=== PATIENT | female | born 1940 | race Caucasian/White ===

== ENCOUNTER 2020-06-24 11:33 | Outpatient (CLI) | payer MEDICARE, SELFPAY ==
--- NOTE | ~2020-06-24 | US_ITS ---
EXAMINATION: US venous doppler [facility] EXAM DATE: 06/24/2020 12:19 INDICATION: Left leg swelling, knee replacement in May. TECHNIQUE: Multiple grayscale, color flow and Doppler images of the left lower extremity deep venous system were obtained and reviewed. There is no prior study for comparison. FINDINGS: The left common femoral, femoral and profunda veins demonstrate normal color flow, respirat ory variation, augmentation and compressibility. Compressibility, color flow confirmed within the le ft popliteal, posterior tibial, peroneal, and greater saphenous veins. IMPRESSION: 1. No left lower extremity deep venous thrombosis. Reviewed, dictated and finalized at location B.
== END 2020-06-24 11:34 | disposition home or self-care (01) ==
LOC: ANHIMG 11:46
PROVIDERS: PCP Family Medicine; Visit Provider Orthopaedic Surgery
DX: M79.605 Pain in left leg (principal)
CPT/HCPCS: 93971

== ENCOUNTER 2021-09-22 07:46 | Outpatient (CLI) | payer MEDICARE, SELFPAY ==
--- NOTE | ~2021-09-22 | DEXA_ITS ---
Bone Density Report Name: Jadyn Grey Age: 80 Sex: Female Ethnicity: White Date of : 1940 Indication: postmenopausal; height loss; prior fracture; asthma or emphysema; Referring Provider: JEAN PIERRE SAM Study: Bone densitometry was performed. Exam Date: September 22, 2021 Accession number: [id number] Bone Density: Region BMD T-score Z-score Classification AP Spine (L1-L4) 1.132 0.8 3.4 Normal Femoral Neck (Left) 0.698 -1.4 0.9 Osteopenia Total Hip (Left) 0.791 -1.2 0.8 Osteopenia Total Hip Bilateral Avg 0.798 -1.2 0.8 Osteopenia Femoral Neck (Right) 0.747 -0.9 1.3 Normal Total Hip (Right) 0.804 -1.1 0.9 Osteopenia World Health Organization criteria for BMD impression classify patients as: Normal (T-score at or above -1.0), Osteopenia (T-score between -1.0 and -2.5), or Osteoporosis (T-score at or below -2.5). 10-year Fracture Risk(1): Major Osteoporotic Fracture 18% Hip Fracture 3.6% Reported Risk Factors: [place] (), Neck BMD=0.698, BMI=25.4, previous fracture (1) FRAX(R) Version 3.08. Fracture probability calculated for an untreated patient. Fracture probability may be lower if the patient has received treatment. Clinical Information Provided by Patient: Has had a low trauma fracture Has used the following medications: Vitamin D, Calcium Has the following medical conditions: Asthma or Emphysema Patient maximum height was 64 Menopause Age: 55 Onset of menses at age 16 Number of children 0 Impression: The patient has low bone mass, based on the Left Femoral Neck T-score. The patient has an estimated ten-year risk of hip fracture of 3.6% and an estimated ten-year risk of major fracture of 18%, based on the WHO FRAX algorithm. The patient has risk factors, including: previous fracture. Discussion: BONE DENSITY IS LOW AT ONE OR MORE SKELETAL SITES. THE PATIENT'S BMD AND CLINICAL RISK FACTORS CONTRIBUTE TO THIS PATIENT'S INCREASED RISK OF FRACTURE. This patient's lowest T-score is low at one or more skeletal sites. It meets the World Health Organization's (WHO) criteria for ?low bone mass? (T-score between -1.0 and -2.5). The patient's 10-year risk of hip fracture as calculated by FRAX exceeds the threshold where pharmacological therapy is recommended by the National Osteoporosis Foundation (NOF). However, all treatment decisions require clinical judgment and consideration of individual patient factors, including patient preferences, comorbidities, previous drug use, risk factors not captured in the FRAX model (e.g., frailty, falls, vitamin D deficiency, increased bone turnover, interval significant decline in bone density) and possible under or overestimation of fracture risk by FRAX. The patient should follow a healthful lifestyle (good nutrition with adequate calcium and vitamin D,
== END 2021-09-22 07:47 | disposition home or self-care (01) ==
LOC: ANHIMG 07:49
PROVIDERS: PCP Family Medicine; Visit Provider Family Medicine
DX: Z78.0 Asymptomatic menopausal state (principal); M85.852 Other specified disorders of bone density and structure, left thigh; M85.851 Other specified disorders of bone density and structure, right thigh
CPT/HCPCS: 77080

== ENCOUNTER 2022-12-08 11:06 | Observation (INO) | payer MEDICARE, SELFPAY ==
[2022-12-08] VITALS (24 sets, daily range): BP systolic 125–157; BP diastolic 49–109; PULSE 62–72; RESP 10–22; TEMP 36.6–36.8; O2SAT 97–100; BMI 24.0
--- NOTE | ~2022-12-08 | XR_ITS ---
EXAMINATION: XR chest 1V INDICATION: Sudden onset dizziness TECHNIQUE: AP view of the chest is obtained. COMPARISON: 02/07/2017 FINDINGS: There are chronic opacities of the lung bases. No pleural effusion or pneumothorax is ident ified. The heart size is normal. Median sternotomy wires are consistent with prior cardiac surgery. A dual-lead cardiac pacemaker of the left chest wall ends with leads in expected locations. IMPRESSION: 1. No acute cardiopulmonary abnormality. Reviewed, dictated and finalized at location L. TH PROGRAM ANALYST
--- NOTE | ~2022-12-08 | CT_ITS ---
EXAMINATION: CTA brain carotid DATE: 12/08/2022 12:29 INDICATION: Cerebrovascular accident. Dizziness. Right eye visual loss. TECHNIQUE: Computed tomographic angiography (CTA) of the head was performed without and with 100 mL O mnipaque-350 intravenous contrast. CTA of the neck was performed with intravenous contrast. Automated exposure control and iterative reconstruction technique were employed. The dose-length product was 1 616.36 mGy-cm. Maximum intensity projection and volume rendered 3D-reconstructions were created by moe alas technologist on a separate workstation. COMPARISON: Chest CT 01/31/2010 FINDINGS: HEAD CTA: There are scattered areas of low attenuation in the cerebral white matter, which is within normal limits for the patient's age. There is no intracranial hemorrhage, acute infarction, or abnorm al intracranial mass lesion. The ventricles are normal in size. There is mucosal thickening in the pa ranasal sinuses. There are changes of ethmoidectomies. There is thickening of the sage of the maxill reji sinuses. There are small bilateral mastoid effusions. Right vertebral artery is dominant. There i s no significant stenosis of basilar artery or the posterior cerebral arteries. The posterior communi cating arteries are normal. There is no significant stenosis of the intracranial internal carotid art eries or anterior or middle cerebral arteries. Anterior communicating artery is normal. There is no a neurysm. NECK CTA: There is mild scarring at the lung apices. There is a 2.0 cm nodule in left upper lobe. Par tially visualized is a left chest pacer. There is a 1.2 cm nodule in right thyroid lobe, likely not c linically significant. There are no pathologically enlarged lymph nodes. There is no significant sten osis of the vertebral arteries. There is plaque in the proximal internal carotid arteries. There is 0 % stenosis of the proximal right internal carotid artery relative to normal distal artery lumen diame ter (NASCET criteria). There is 0% stenosis of the proximal left internal carotid artery relative to normal distal artery lumen diameter. There is severe cervical and thoracic spondylosis. IMPRESSION: 1. Normal aging brain. 2. No aneurysm or significant intracranial calcinosis. 3. 0% stenosis of the proximal internal carotid arteries relative to normal distal artery lumen diame ters (NASCET criteria). 4. 2.0 cm nodule in left lung upper lobe, which may be infection/inflammation or less likely neoplasm . Noncontrast low-dose chest CT is recommended in 1-2 months. Reviewed, dictated and finalized at location A. UCTION PATTERN MAKER IMPRESSION: 1. Normal aging brain. 2. No aneurysm or significant intracranial calcinosis. 3. 0% stenosis of the proximal internal carotid arteries relative to normal dis bertha artery lumen diameters (NASCET criteria). 4. 2.0 cm nodule in left lung upper lobe, which may be infection/inflammation o r less likely neoplasm. Noncontrast low-dose chest CT is recommended in 1-2 mon ths.
--- NOTE | ~2022-12-08 | US_ITS ---
EXAMINATION: US carotid duplex BI DATE: 12/09/2022 10:38 INDICATION: Transient ischemic episode with subjective visual disturbance TECHNIQUE: Grayscale, color Doppler, and pulsed Doppler images of the cervical carotid arteries were obtained. The degree of vessel stenosis is placed in one of the following categories: normal, <50%, 5 0-69%, >=70% but less than near-occlusion, near-occlusion, or total occlusion. Note that percent sten osis relative to normal distal artery lumen diameter is indirectly measured from velocity measurement s as described by Ron, et al. Radiology 2003; 229:340-346. COMPARISON: None. FINDINGS: RIGHT: The right common carotid artery (CCA) peak systolic velocity (PSV) is 90 cm/s. The right internal car otid artery (ICA) PSV is 70 cm/s. The right ICA end-diastolic velocity (EDV) is 21 cm/s. The right IC A/CCA PSV ratio is 0.8. Grayscale and color Doppler images yield an estimate of <50% diameter reducti on from plaque in the ICA. The external carotid artery (ECA) PSV is 86 cm/s. There is antegrade flow in the right vertebral artery. LEFT: The left CCA PSV is 96 cm/s. The left ICA PSV is 83 cm/s. The left ICA EDV is 24 cm/s. The left ICA/C CA PSV ratio is 0.9. Grayscale and color Doppler images yield an estimate of <50% diameter reduction from plaque in the ICA. The ECA PSV is 70 cm/s. There is antegrade flow in the left vertebral artery. IMPRESSION: 1. <50% stenosis in the right internal carotid artery. 2. <50% stenosis in the left internal carotid artery. Reviewed, dictated and finalized at location A. ES' LOCKER ROOM ATTENDANT
--- NOTE | 2022-12-08 11:11 | ECG_ITS ---
Measurements Intervals [place] Rate: 61 P: 49 NM: 173 QRS: -38 QRSD: 125 T: 6 QT: 371 QTc: 375 Interpretive Statements ATRIAL SENSE- ELECTRONIC VENTRICULAR PACEMAKER BASELINE ARTIFACT- I, V5-V6 NO FURTHER INTERPRETATION IS POSSIBLE ATYPICAL ECG NO PREVIOUS ECG AVAILABLE FOR COMPARISON Electronically Signed On 12-08-2022 12:23:22 ORDER ANALYST by Terry Monroy D.O.
[2022-12-08 11:40] LABS: Glucose Point of Care 104 mg/dl (65-105)
[2022-12-08 11:49] LABS: Basophils Percent Auto 0.1 % (0.2-1.2); Hematocrit 40.5 % (37.0-47.0); Hemoglobin 12.8 g/dL (12.0-15.0); Immature Granulocyte Absolute 0.03 K/mm3 (0.00-0.031); Immature Granulocyte Percent A 0.4 % (0-0.5); Lymphocytes Absolute Auto 1.66 K/mm3 (0.9-3.2); Lymphocytes Percent Auto 19.5 % (18.3-44.2); Mean Corpuscular HGB Conc 31.6 g/dl (32-36); Mean Corpuscular Hemoglobin 27.4 pg (26-34); Mean Corpuscular Volume 86.5 fl (80-100); Mean Platelet Volume 10.1 fl (7.4-10.4); Monocytes Absolute Auto 0.6 K/mm3 (0.1-0.6); Monocytes Percent Auto 7.4 % (2.6-8.5); Neutrophils Absolute Auto 6.2 K/mm3 (1.3-6.7); Neutrophils Percent Auto 72.6 % (45.5-73.1); Platelet Count Result 283 k/mm3 (150-375); Red Blood Count 4.68 M/mm3 (4.2-5.4); Red Cell Distribution Width 12.7 % (11.5-14.5); White Blood Count 8.5 K/mm3 (4.5-10.0)
[2022-12-08 12:00] LABS: Partial Thromboplastin Time 27.6 SECONDS (22.3-36.8); Prothrombin Time 13.1 Seconds (11.1-14.7)
[2022-12-08 12:01] LABS: Alanine Aminotransferase 16 U/L (6-35); Alkaline Phosphatase 72 U/L (38-126); Anion Gap 6 mmol/L (8-16); Aspartate Amino Transferase 23 U/L (14-36); Bilirubin,Total 0.6 mg/dL (0.2-1.3); Blood Urea Nitrogen 18 mg/dL (7-17); Calcium 8.9 mg/dL (8.4-10.2); Carbon Dioxide 29 mmol/L (22-30); Chloride 103 mmol/L (98-107); Estimated CRCL calculation 33 ml/min; Estimated Glomerular Filt Rate 53; Glucose 107 mg/dL (65-110); Potassium 4.2 mmol/L (3.4-5.0); Sodium 138 mmol/L (137-145)
[2022-12-08 12:12] LABS: Troponin I < 0.012 ng/mL (0.000-0.034)
--- NOTE | 2022-12-08 12:27 | ED.GENADULT ---
HPI - General Adult General Chief complaint: Eye Problems Stated complaint: vision loss right eye Time Seen by Provider: 12/08/22 11:13 History of Present Illness HPI narrative: Patient is an 82-year-old female who presents ER with concerns for strokelike symptoms. At 9 AM she was washing dishes when she began to get dizzy and lost vision in her right eye. When she covered her left eye she had 0 vision in her right eye. Symptoms lasted for approximately 10 seconds. She called her PCP who told her she should come to the ER. No numbness or weakness in arm or leg. No known slurred speech or facial droop. She has no headache. No symptoms at this time. Related Data Home Medications Medication Instructions Recorded Confirmed albuterol sulfate 0.63 mg/3 mL 0.55 mg inhalation QID 12/26/19 12/08/22 solution for nebulization albuterol sulfate 90 mcg/actuation 2 puff inhalation Q4-6H PRN 12/26/19 12/08/22 aerosol inhaler (ProAir HFA) Bronchodilation aspirin 81 mg tablet,delayed 81 mg PO DAILY 12/26/19 12/08/22 release (Aspir-) calcium carbonate 500 mg calcium 500 mg PO DAILY 12/26/19 12/08/22 (1,250 mg) tablet cholecalciferol (vitamin D3) 25 1,000 unit PO DAILY 12/26/19 12/08/22 mcg (1,000 unit) tablet (Vitamin D3) fluticasone furoate 200 1 inhalation inhalation DAILY 12/26/19 12/08/22 mcg-vilanterol 25 mcg/dose inhalation powder (Breo Ellipta) benralizumab 30 mg/mL subcutaneous 30 mg subcut ONCE 04/14/21 12/08/22 syringe (Fasenra) biotin 10,000 mcg capsule 10,000 mcg PO DAILY 12/08/22 12/08/22 Allergies Allergy/AdvReac Type Severity Reaction Status Date / Time No Known Allergies Allergy Verified 10/15/21 09:32 Review of Systems Review of Systems: All systems reviewed & are unremarkable except as noted in HPI and below Constitutional: Constitutional: Denies chills, Denies fatigue and Denies fever(s) Eyes: Eyes: Reports change in vision and Denies photophobia ENT: Denies nasal congestion and Denies sore throat Cardiovascular: Cardiovascular: Denies chest pain, Denies rapid heart rate and Denies radiating jaw, neck or arm pain Respiratory: Respiratory: Denies cough, Denies dyspnea and Denies wheezing Gastrointestinal: Gastrointestinal: Denies abdominal pain, Denies nausea and Denies vomiting PMFSH Past Medical History Medical History Asthma Hyperlipidemia Midline sternotomy scar Pacemaker Surgical History Surgical History History of meniscectomy of left knee History of permanent cardiac pacemaker placement History of total left knee replacement Family History Family History Father Family history of lung cancer, Onset Age: 57 Mother Patient's mother is Other Family history of malignant neoplasm of ovary Social History Social History Second hand tobacco smoke exposure: No Alcohol intake: current Alcohol use details: socially; seldom Substance use: never Substance use type: does not use Spiritual care concerns: No Agree to blood products: Yes Exam Narrative: GENERAL: Well-appearing, well-nourished, and in no acute distress. HEAD: Normocephalic, atraumatic. EYES: PERRL and EOMI. ENT: Mucous membranes moist. CHEST: Mild scattered wheezes. No respiratory distress. HEART: Regular rate and rhythm. Normal peripheral pulses. ABDOMEN: Soft, nontender, nondistended. EXTREMITIES: Normal range of motion. No edema. SKIN: Warm, dry, no rash. NEURO: Alert and oriented x3. NIH stroke scale 0. No focal deficits. PSYCH: Normal mood and affect. Course Course Emergency Course: I reviewed patient's imaging/EKG/lab work. Patient without critical stenosis requiring intervention in her vasculature. Will admit to the hospital ser
--- NOTE | 2022-12-08 17:35 | ADMGEN ---
This patient, Jadyn Grey, was admitted to Medical Room 345-. Patient/family oriented to hospital policies and general routines including ID bracelet, bed and alarms, visiting hours, pain management, procedures, bathroom and other care routines, personal items, smoking policy, room service/diet, and visiting hours. Information on how to activate the Rapid Response Team has been discussed. Patient/Family are encouraged to report perceived risks to care and to ask questions if they do not understand what they are told or what they should do.
--- NOTE | 2022-12-08 21:10 | PM.IMHP ---
H&P: HPI History of Present Illness Date/Time: 12/08/22 21:10 Chief Complaint: Visual problem Narrative: This is a fairly healthy 82-year-old female patient who came in with complaints of stroke-like symptoms. The patient stated around 90 a.m. she was washing her dishes and she began to get dizzy. However the patient stated she has had dizziness in the past and has already seen her doctor about the dizziness. The patient stated that she felt dizzy today and lost vision in right eye. She stated it last anywhere from 30 seconds to 60 seconds. She stated that the vision in the right eye went only black. And then returned on its own. She called her primary care doctor who instructed her to come to the emergency room. She had no numbness or tingling or focal weakness. She had no facial droop or slurred speech. The patient is already on an aspirin. The patient is walking and talking without difficulty. Head and neck CTA was read as the following. Normal aging brain. 2. No aneurysm or significant intracranial calcinosis. 3. 0% stenosis of the proximal internal carotid arteries relative to normal distal artery lumen diameters (NASCET criteria). 4. 2.0 cm nodule in left lung upper lobe, which may be infection/inflammation or less likely neoplasm. Noncontrast low-dose chest CT is recommended in 1-2 months. Chest x-ray read as no acute cardiopulmonary abnormal The patient stated that she was diagnosed with COVID approximately 8 days ago. She stated that her primary care doctor told her that she only needed to be on isolation for 5 days. The patient is being admitted for observation status on the date of service of 12/08/2022 Review of Systems Review of Systems: See HPI All systems reviewed & are unremarkable except as noted in HPI and below Constitutional: Constitutional: Reports as per HPI and Reports no additional constitutional complaints Eyes: Eyes: Reports as per HPI and Reports no additional eye complaints ENT: Reports system reviewed and no additional complaints, except as documented and Reports Normal hearing present Cardiovascular: Cardiovascular: Reports no additional cardiovascular complaints Respiratory: Respiratory: Reports no additional respiratory complaints and Reports no additional respiratory complaints Gastrointestinal: Gastrointestinal: Reports as per HPI and Reports no additional gastrointestinal complaints Musculoskeletal: Musculoskeletal: Reports no additional musculoskeletal complaints Integumentary/Breasts: Skin/Breast: Reports system reviewed and no additional complaints, except as docu and Reports as per HPI Neurologic: Reports system reviewed and no additional complaints, except as documented, Reports as per HPI and Reports Normal hearing present Psychiatric: Psychiatric: Reports no additional psychiatric complaints and Reports as per HPI Endocrine: Endocrine: Reports no additional endocrine complaints Hematologic/Lymphatic: Hematologic/Lymphatic: Reports no additional hematologic/lymphatic complaints Allergic/Immunologic: Allergic/Immunologic: Reports no additional allergic/immunologic complaints [facility] Past Medical History Medical History Asthma Hyperlipidemia Midline sternotomy scar Pacemaker Surgical History Surgical History (Updated 12/08/22 @ 23:20 by Samina Waldron NP) H/O cataract extraction H/O heart valve replacement with bioprosthetic valve History of bunionectomy History of meniscectomy of left knee History of permanent cardiac pacemaker placement History of total left knee replacement Family History Family History Father Family history of lung cancer, Onset Age: 57 Mother Patient's mother is Other Family history of malignant neoplasm of ovary Social History Social History (Updated 12/08/22 @ 23:21 by Samina Waldron NP) Social History:
[2022-12-09] VITALS (7 sets, daily range): BP systolic 120–128; BP diastolic 47–56; PULSE 61–77; RESP 16–18; TEMP 36.7–37; O2SAT 98–99
[2022-12-09 05:34] LABS: Basophils Percent Auto 0.2 % (0.2-1.2); Hematocrit 36.6 % (37.0-47.0); Hemoglobin 11.8 g/dL (12.0-15.0); Immature Granulocyte Absolute 0.02 K/mm3 (0.00-0.031); Immature Granulocyte Percent A 0.3 % (0-0.5); Lymphocytes Absolute Auto 2.05 K/mm3 (0.9-3.2); Mean Corpuscular HGB Conc 32.2 g/dl (32-36); Mean Corpuscular Hemoglobin 27.5 pg (26-34); Mean Corpuscular Volume 85.3 fl (80-100); Mean Platelet Volume 9.8 fl (7.4-10.4); Monocytes Absolute Auto 0.8 K/mm3 (0.1-0.6); Monocytes Percent Auto 11.3 % (2.6-8.5); Neutrophils Absolute Auto 3.8 K/mm3 (1.3-6.7); Neutrophils Percent Auto 57.2 % (45.5-73.1); Platelet Count Result 280 k/mm3 (150-375); Red Blood Count 4.29 M/mm3 (4.2-5.4); Red Cell Distribution Width 12.8 % (11.5-14.5); White Blood Count 6.6 K/mm3 (4.5-10.0)
[2022-12-09 05:40] LABS: Alanine Aminotransferase 14 U/L (6-35); Albumin Level 3.6 g/dL (3.5-5.1); Alkaline Phosphatase 57 U/L (38-126); Anion Gap 1 mmol/L (8-16); Aspartate Amino Transferase 23 U/L (14-36); Bilirubin,Total 0.6 mg/dL (0.2-1.3); Blood Urea Nitrogen 17 mg/dL (7-17); Calcium 8.8 mg/dL (8.4-10.2); Carbon Dioxide 31 mmol/L (22-30); Chloride 104 mmol/L (98-107); Estimated CRCL calculation 30 ml/min; Estimated Glomerular Filt Rate 48; Glucose 92 mg/dL (65-110); Potassium 4.1 mmol/L (3.4-5.0); Sodium 136 mmol/L (137-145)
--- NOTE | 2022-12-09 06:00 | ECHO_ITS ---
Patient Info Name: Jadyn Grey Age: 82 years : 1940 Gender: Female Ht: 63 in Wt: 135 lbs BSA: 1.66 m2 HR: 71 bpm BP: 128 / 57 mmHg Heart Rhythm: Sinus Rhythm Technical Quality: Fair Exam Date: 12/09/2022 10:04 AM Exam Location: [facility] Patient Status: Inpatient Admit Date: 12/08/2022 Staff Ordering Physician: Andrew Feng MD Commodities Clerk: Lynsey Zuniga RDCS Attending Provider: Rayo Myers MD Referring Physician: Jung ZAMUDIO; Exam Type: CA echo doppler color flow Study Info Indications - TIA Complete two-dimensional, color flow and Doppler transthoracic echocardiogram is performed. Summary 1. Complete two-dimensional, color flow and Doppler transthoracic echocardiogram is performed. 2. Left ventricular chamber dimension is normal. 3. Left ventricular systolic function is normal, estimated at >70%. 4. The left ventricular diastolic function is grade I diastolic dysfunction. 5. Right ventricular systolic function is normal. 6. Linear artifact in right ventricle suggestive of catheter(s), pacemaker lead(s), or ICD lead(s). 7. Linear artifact in the right atrium suggestive of catheter(s), pacemaker lead(s), or ICD lead(s). 8. The mitral valve has thickened leaflets and calcified leaflets. 9. The mitral valve annulus is severely calcified. 10. There is trace mitral valve regurgitation. 11. There is mild to moderate tricuspid valve regurgitation. Left Ventricle Left ventricular chamber dimension is normal. Left ventricular systolic function is normal, estimated at >70%. There is no increased left ventricular wall thickness. The left ventricular diastolic function is grade I diastolic dysfunction. Right Ventricle Linear artifact in right ventricle suggestive of catheter(s), pacemaker lead(s), or ICD lead(s). Right ventricular chamber dimension is normal. Right ventricular systolic function is normal. Left Atria Left atrial chamber dimension is normal. Right Atria Linear artifact in the right atrium suggestive of catheter(s), pacemaker lead(s), or ICD lead(s). Right atrial chamber dimension is normal. Atrial Septum Intact interatrial septum visualized by color flow imaging. Aortic Valve The aortic valve is not well visualized. There is no aortic valve regurgitation. Pulmonic Valve The pulmonic valve is not well visualized. Mitral Valve The mitral valve has thickened leaflets and calcified leaflets. There is trace mitral valve regurgitation. The mitral valve annulus is severely calcified. Tricuspid Valve There is mild to moderate tricuspid valve regurgitation. Pericardium/Pleural There is no pericardial effusion. Inferior Vena Cava Normal inferior vena cava with >50% collapse upon inspiration consistent with normal right atrial pressure, 3 mmHg. Aorta The aortic root size at the sinus of Valsalva is normal. Left Ventricular Outflow Tract Name Value Normal LVOT 2D LVOT Diameter 1.9 cm LVOT Doppler LVOT Peak Gradient 7 mmHg LVOT Mean Gradient 3 mmHg LVOT VTI
[2022-12-09] MEDS: FLUTICASONE/SALMETEROL 230-21 MCG INHALER 1 PUFF 2 PUFF INHALATION (08:04)
[2022-12-09] MEDS: OMEGA 3 POLYUNSAT FATTY ACIDS 1 GM CAP PO (09:43)
[2022-12-09] MEDS: ASPIRIN 81 MG ENTERIC TABLET PO (09:43)
[2022-12-09] MEDS: CHOLECALCIFEROL 1,000 UNITS TABLET 1000 UNITS PO (09:43)
[2022-12-09] MEDS: CALCIUM CARBONATE (OSCAL) 500 MG TABLET PO (09:43)
--- NOTE | 2022-12-09 10:46 | PC.NURSE ---
[facility], meds can be seen on JAN, just not scanned in. all meds and doseage verified with pt. pt gave all correct identifiers. morning meds were given at 0943. hospitalist notified of this.
--- NOTE | 2022-12-09 12:05 | WPDNEURCNPN ---
Assessment and Plan Assessment and plan (1) Brain TIA: Code(s): G45.9 - Transient cerebral ischemic attack, unspecified Status: Acute (2) Hyperlipidemia: Code(s): E78.5 - Hyperlipidemia, unspecified Status: Acute (3) Pacemaker: Code(s): Z95.0 - Presence of cardiac pacemaker Status: Acute Plan Jadyn Grey is a 82 year old female with a history of asthma, hyperlipidimia, cardiac pacemaker who presented yesterday due to concerns for possible TIA. She had a short episode of dizziness and R vision loss. Likely amaurosis fugax although no significant atherosclerosis noted on CT angio of carotids. - MRI brain cannot be done during admission due to pacemaker - Recommend Aspirin and Plavix x 3 weeks, then Aspirin monotherapy - Continue Simvastatin - Surface echocardiogram is pending -- if unrevealing okay to discharge Consult date: 12/09/22 Time Seen: 12:05 Reason for consult: TIA/Stroke HPI: Jadyn Grey is a 82 year old female with a history of asthma, hyperlipidimia, cardiac pacemaker who presented yesterday due to concerns for possible TIA. Patient was washing her dishes yesterday morning when she developed sudden onset dizziness and complete loss of vision in her right eye. She reports this lasted less than a minute and self-resolved. She has no focal numbness or weakness, confusion or speech changes associated with the episode. She presented to [place] emergency department at the recommendation of her PCP. On arrival to the ED her neuro exam was unremarkable. Her CT head was negative for any acute changes. CTA brain and carotid showed 0% stenosis. Her blood pressure has been mostly in the 130s systolic. She has never had prior episodes in the past like this. She takes daily aspirin and simvastatin and follows with her [facility] at [facility]. Patient feels completely normal currently and denies any complaints. MRI brain could not be done due to patient's pacemaker. Carotid doppler was normal. Surface echocardiogram was done which is pending. Review of Systems Constitutional: Constitutional: Reports no additional constitutional complaints Eyes: Eyes: Reports as per HPI ENT: Reports system reviewed and no additional complaints, except as documented Cardiovascular: Cardiovascular: Reports no additional cardiovascular complaints Respiratory: Respiratory: Reports no additional respiratory complaints Gastrointestinal: Gastrointestinal: Reports no additional gastrointestinal complaints Genitourinary: Genitourinary: Reports no additional female genitourinary complaints Musculoskeletal: Musculoskeletal: Reports no additional musculoskeletal complaints Integumentary/Breasts: Skin/Breast: Reports system reviewed and no additional complaints, except as docu Neurologic: Reports as per HPI Psychiatric: Psychiatric: Reports no additional psychiatric complaints [facility] Past Medical History Medical History Asthma Hyperlipidemia Midline sternotomy scar Pacemaker Surgical History Surgical History H/O cataract extraction H/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 The patient is retired from [employer]. She is a lifelong nonsmoker. Code status full code Smoking status: Never smoker Second hand tobacco smoke e
--- NOTE | 2022-12-09 14:48 | PM.DS ---
DS: Admitting Diagnosis Discharge Date 12/09/22 Admitting Diagnosis TIA DS: Discharge Diagnosis Discharge Diagnosis (1) Brain TIA: Code(s): G45.9 - Transient cerebral ischemic attack, unspecified Status: Acute Assessment and Plan: -the patient has no neurological deficits. -neurology has been consulted. Unable to do an MRI she has a pacemaker -Neurology consultation was greatly be appreciated. -the patient is already on an aspirin. -patient's vision has returned to normal. I suspect that the patient has had a TIA and not a CVA. As her symptoms have already resolved. Her symptoms only lasted 30-60 seconds. -an echo has been ordered -carotid Dopplers have been ordered as well. -a CTA had been performed. (2) Hyperlipidemia: Code(s): E78.5 - Hyperlipidemia, unspecified Status: Acute Assessment and Plan: -continue with simvastatin (3) Asthma: Code(s): J45.909 - Unspecified asthma, uncomplicated Status: Acute Assessment and Plan: -continue with albuterol inhaler Plan Patient has a lung nodule that was seen on the CT scan. Patient will need to follow-up with her primary care doctor for repeat CT 1-2 months. DS: Summary Hospital Course Reason for hospitalization: TIA Hospital Course: 82-year-old female presented to the ED on 12/08/2022 with stroke-like symptoms including dizziness and loss of vision and her right eye for approximately 30 seconds. The symptoms did resolve although it did worried her and she presented to the ED. Patient was presumed to have a TIA versus CVA. CTA negative for acute intracranial processes, aneurysm, and 0% stenosis of internal carotid arteries. CTA did reveal 2 cm lung nodule and follow-up CT in 1-2 months as an outpatient is recommended. Carotid Dopplers and MRI ordered, neurology consulted. MRI unable to be conducted due to pacemaker. Carotid Dopplers negative. Neurology recommended initiation of Plavix for total of 3 weeks. Patient no longer having symptoms and presumed to have TIA. Patient already on high-dose statin and aspirin which recommended she continue. Echocardiogram revealed valvular disease which was already known to the patient. Patient follows cafeteria worker and is recommended that she continues following as an outpatient. Talked with neurologist over the phone and she advised follow-up with Neurology in 1-2 weeks. For more detailed information about patient's stay see above. Time Spent with Patient Time attestation: Total time spent providing and/or coordinating discharge services: Time spent: Greater than 30 minutes Exam Narrative: GENERAL: Comfortable, no acute distress HENMT: moist mucous membranes EYES: EOM intact b/l NECK: no lymphadenopathy RESPIRATORY: clear to auscultation CARDIO: RRR GI: soft, nontender, bowel sounds present SKIN: no rashes EXTREMITIES: no edema, redness or tenderness DS: Data Data Completed and Pending Labs on day of discharge: Labs from last 24 hours 12/09/22 12/09/22 12/09/22 05:25 05:25 05:25 WBC 6.6 RBC 4.29 Hgb 11.8 L Hct 36.6 L MCV 85.3 MCH 27.5 MCHC 32.2 RDW 12.8 Plt Count 280 MPV 9.8 Immature Gran % (Auto) 0.3 Neut % (Auto) 57.2 Lymph % (Auto) 31.0 [place] % (Auto) 11.3 H Eos % (Auto) 0.0 Baso % (Auto) 0.2 Lymph # (Auto) 2.05 [place] # (Auto) 0.8 H Eos # (Auto) 0.0 Baso # (Auto) 0.0 Abs Immat Gran (auto) 0.02 Absolute Neuts (auto) 3.8 Absolute Nucleated RBC 0.0 Nucleated RBC % 0.0 Sodium 136 L Potassium 4.1 Chloride 104 Carbon Dioxide 31 H Anion Gap 1 L BUN 17 Creatinine 1.10 H Estim Creat Clear Calc 30 Estimated GFR 48 L Glucose 92 Calcium 8.8 Magnesium 2.0 Total Bilirubin 0.6 AST 23 ALT 14 Alkaline Phosphatase 57 Total Protein 6.0 L Albumin 3.6 TSH (Reflex) 1.830 Discharge Plan Discharge Attending phys
== END 2022-12-09 16:00 | disposition home or self-care (01) ==
LOC: ANHED 11:46 → ANH3MED 17:40
PROVIDERS: Nurse Practitioner; Admitting Provider Chiropractor; Emergency Provider Emergency Medicine; PCP Hospitalist; Visit Provider Internal Medicine
DX: G45.9 Transient cerebral ischemic attack, unspecified (principal); E78.5 Hyperlipidemia, unspecified; Z95.0 Presence of cardiac pacemaker; R42 Dizziness and giddiness; H54.61 Unqualified visual loss, right eye, normal vision left eye; J45.909 Unspecified asthma, uncomplicated; R91.1 Solitary pulmonary nodule; Z86.16 Personal history of COVID-19; I08.1 Rheumatic disorders of both mitral and tricuspid valves; F10.90 Alcohol use, unspecified, uncomplicated; Z79.51 Long term (current) use of inhaled steroids; Z79.82 Long term (current) use of aspirin; Z79.899 Other long term (current) drug therapy
CPT/HCPCS: 36415; 70496; 70498; 71045; 80053; 82948; 83735; 84443; 84484; 85025; 85610; 85730; 93005; 93306; 93880; 94640; 99285; A9270; G0378; Q9967

== ENCOUNTER 2023-12-01 09:54 | Emergency (ER) | payer MEDICARE, SELFPAY ==
[2023-12-01 10:08] VITALS: BP 115/48; PULSE 65; RESP 16; TEMP 36.4; O2SAT 98
[2023-12-01] MEDS: TETANUS/DIPHTHERIA TOXOIDS ADSORB 0.5 ML VIAL (*BKC) IM (10:54)
--- NOTE | 2023-12-01 11:04 | ED.WOUNDLAC ---
HPI - Wound/Laceration General Chief Complaint: Wound/Laceration Stated Complaint: L FINGER LACERATION Time Seen by Provider: 12/01/23 10:56 Source: patient, family () and RN notes reviewed Mode of arrival: ambulatory Limitations: no limitations History of Present Illness HPI narrative: Patient presents today complaining of a laceration to the tip of her left 2nd finger. It was sustained yesterday evening around 5:00 p.m.. She was opening a bag of vegetables with a knife when she cut herself. She came in for treatment today because they cannot get it to stop bleeding. She is on 81 mg aspirin daily, but no other blood thinners. Related Data Home Medications Medication Instructions Recorded Confirmed albuterol sulfate 0.63 mg/3 mL 0.55 mg inhalation QID 12/26/19 12/01/23 solution for nebulization albuterol sulfate 90 mcg/actuation 2 puff inhalation Q4-6H PRN 12/26/19 12/01/23 aerosol inhaler (ProAir HFA) Bronchodilation aspirin 81 mg tablet,delayed 81 mg PO DAILY 12/26/19 12/01/23 release (Aspir-) calcium carbonate 500 mg calcium 500 mg PO DAILY 12/26/19 12/01/23 (1,250 mg) tablet cholecalciferol (vitamin D3) 25 1,000 unit PO DAILY 12/26/19 12/01/23 mcg (1,000 unit) tablet (Vitamin D3) fluticasone furoate 200 1 inhalation inhalation DAILY 12/26/19 12/01/23 mcg-vilanterol 25 mcg/dose inhalation powder (Breo Ellipta) biotin 10,000 mcg capsule 10,000 mcg PO DAILY 12/08/22 12/01/23 omega [id number] oil 1,000 mg 1 cap PO DAILY 12/08/22 12/01/23 (120 mg-180 mg) capsule (Fish Oil) Allergies Allergy/AdvReac Type Severity Reaction Status Date / Time No Known Allergies Allergy Verified 12/01/23 10:41 Review of Systems Review of Systems: CONSTITUTIONAL: Denies body aches, fever, chills, or sweats. EYES: Denies visual changes, redness, or discharge. ENT: Denies rhinorrhea, congestion, sore throat, or otalgia. CARDIOVASCULAR: Denies chest pain, palpitations, or edema. RESPIRATORY: Denies cough or dyspnea. GASTROINTESTINAL: Denies abdominal pain, nausea, vomiting, or diarrhea. GENITOURINARY: Denies dysuria or hematuria. SKIN: + finger laceration MUSCULOSKELETAL: Denies back pain, joint pain, or myalgia. NEUROLOGIC: Denies headache, numbness, tingling, or weakness. PSYCH: Denies depression or anxiety. [facility] Past Medical History Medical History Asthma Hyperlipidemia Midline sternotomy scar Pacemaker Surgical History Surgical History H/O cataract extraction H/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 The patient is retired from [employer]. She is a lifelong nonsmoker. Code status full code Smoking status: Never smoker Second hand tobacco smoke exposure: No Alcohol intake: current Alcohol use details: socially; seldom Substance use: never Substance use type: does not use Lack of Transportation: No Lack of Food: Never True Current Housing: I Have Housing Concerned About Future Housing: No Difficulty Paying Gas/Electric Bills: No Difficulty Paying for Meds: No Currently Unemployed: No Education: Trade/Vocational Certificate Difficulty w/ Childcare or Family Care: No Spiritual care concerns: No Agree to blood products: Yes Comments At
== END 2023-12-01 11:25 | disposition home or self-care (01) ==
PROVIDERS: Emergency Provider Nurse Practitioner; PCP Family Medicine
DX: S61.211A Laceration without foreign body of left index finger without damage to nail, initial encounter (principal); W26.0XXA Contact with knife, initial encounter; Z23 Encounter for immunization; J45.909 Unspecified asthma, uncomplicated; E78.5 Hyperlipidemia, unspecified; Z95.0 Presence of cardiac pacemaker; Z95.2 Presence of prosthetic heart valve; Z96.652 Presence of left artificial knee joint
CPT/HCPCS: 90471; 90714; 99213; G0463